=== PATIENT | male | born 2000 | race Two or more races ===

== ENCOUNTER 2023-04-08 23:31 | Emergency (ER) | payer OTHER ==
[~2023-04-08] VITALS: Ht 167.6 cm; Wt 75.0 kg
[2023-04-09] MEDS ORDERED: CefTRIAXone SODIUM 1 GM/VIAL IM ONE (01:15)
[2023-04-09] MEDS ORDERED: BACITRACIN 0.9 GM PACKET OINTMENT TP ONE (01:15)
[2023-04-09] MEDS ORDERED: DOXYCYCLINE HYCLATE 100 MG TABLET PO ONE (01:15)
[2023-04-09] MEDS ORDERED: PERTUSS(ACELL),DIPH,TET VAC/PF 0.5 ML SYRINGE IM. ONE (01:15)
[2023-04-09] MEDS ORDERED: LIDOCAINE/PF 1% 2 ML VIAL IM ONE (01:15)
[2023-04-09] MEDS ORDERED: HYDROGEN PEROXIDE 118 ML SOLUTION TP ONE (01:15)
[2023-04-09 02:08] VITALS: BP 129/63
== END 2023-04-09 02:08 | disposition home or self-care (01) ==
LOC: EMS 23:31
DX: N48.22 Cellulitis of corpus cavernosum and penis (principal); M79.5 Residual foreign body in soft tissue
CPT/HCPCS: 99284; 90715; 90471; 96372; J0696; J3490